=== PATIENT | female | born 1965 | race American Indian/Alaskan Native ===

== ENCOUNTER 2018-05-21 13:52 | Emergency (ER) | payer OTHER ==
--- NOTE | 2018-05-21 14:00 | Emergency Department Report ---
Blank Doc - Documentation Documentation: 52 y o female presents to ED cc of left lower leg pain anfd flank pain x 1 week, states leg is worse with walking ua ordered
[2018-05-21] MEDS ORDERED: IBUPROFEN PO ONE (15:03)
--- NOTE | 2018-05-21 15:06 | Emergency Department Report ---
ED Back Pain/Injury HPI - General Chief Complaint: Extremity Injury, Lower Stated Complaint: BACK/L LOWER LEG PAIN Time Seen by Provider: 05/21/18 13:57 Source: patient Limitations: No Limitations - History of Present Illness Initial Comments: This is a 52-year-old female who presents with low back pain that is radiating down left lower extremity for one week. No PMH. States she was told of possible arthritis to left hip. States left hip is fine. Pain is shooting from left thigh to left ankle. Patient reports similar symptoms in the past but is increased over the past week while starting a new job. She also reports some swelling to left lower extremity edema and a after standing while at work. MD Complaint: back pain Onset/Timin -: week(s) Similar Symptoms Previously: No Place: home Radiation: left leg Severity: severe Severity scale (0 -10): 9 Quality: burning, aching Consistency: intermittent Improves With: immobilization Worsens With: movement, walking Context: unknown Associated Symptoms: denies: numbness, difficulty urinating, incontinence, fever/chills Treatments Prior to Arrival: NSAIDS - Related Data Previous Rx's Medication Instructions Recorded Last Taken Type Ibuprofen [Motrin 800 MG tab] 800 mg PO Q8HR PRN #20 tablet 05/21/18 Unknown Rx Sulfamethoxazole/Trimethoprim 1 each PO BID #6 tablet 05/21/18 Unknown Rx [Bactrim DS TAB] methOCARBAMOL [Robaxin TAB] 500 mg PO BID PRN #15 tab 05/21/18 Unknown Rx traMADol [Ultram 50 MG tab] 50 mg PO Q6HR PRN #12 tablet 05/21/18 Unknown Rx Allergies Allergy/AdvReac Type Severity Reaction Status Date / Time No Known Allergies Allergy Unverified 05/21/18 13:53 ED Review of Systems ROS: Stated complaint: BACK/L LOWER LEG PAIN Other details as noted in HPI Constitutional: denies: chills, fever Respiratory: denies: cough, shortness of breath, wheezing Cardiovascular: denies: chest pain, palpitations Gastrointestinal: denies: abdominal pain, nausea, diarrhea Musculoskeletal: back pain. denies: joint swelling, arthralgia Skin: denies: rash, lesions Neurological: denies: headache, weakness, paresthesias Psychiatric: denies: anxiety, depression ED Back Pain Physical Exam - Exam General: Vital signs noted. No distress. Alert and acting appropriately. Back/Abdomen: Yes Sacroiliac Tenderness (tenderness above left iliac creast, no swelling or erythema), Yes Straight Leg Raise Pain (left leg), No Abdominal Tenderness, No Perithoracic Tenderness, No Perilumbar Tenderness, No Flank Tenderness Neuro: Yes Normal Sensation, Yes Normal DTR's, Yes Normal Gait, No Motor Weakness ED Course Vital Signs 05/21/18 13:57 Temperature 98.2 F Pulse Rate 95 H Respiratory 16 Rate Blood Pressure 141/85 O2 Sat by Pulse 100 Oximetry Ed Back Pain Tests - Tests Tests: Abnormal UA, Abnormal X Rays ED Medical Decision Making - Lab Data Lab Results 05/21/18 Range/Units Unknown Urine Color Yellow (Yellow) Urine Turbidity Slightly-cloudy (Clear) Urine pH 7.0 (5.0-7.0) Ur Specific [place] 1.017 (1.003-1.030) Urine Protein <15 mg/dl (Negative) mg/dL Urine Glucose (UA) Neg (Negative) mg/dL Urine Ketones Neg (Negative) mg/dL Urine Blood Neg (Negative) Urine Nitrite Neg (Negative) Urine Bilirubin Neg (Negative) Urine Urobilinogen 2.0 (<2.0) mg/dL Ur Leukocyte Esterase Sm (Negative) Urine WBC (Auto) 24.0 H (0.0-6.0) /HPF Urine RBC (Auto) 2.0 (0.0-6.0) /HPF U Epithel Cells (Auto) 16.0 H (0-13.0) /HPF Urine Mucus Few /HPF - Radiology Data Radiology results: report reviewed PROCEDURE: XR SPINE LUMBOSACRAL 2-3V TECHNIQUE: 3 views lumbar spine HISTORY: low back pain worse on left COMPARISONS: None FINDINGS: Lumbar vertebrae demonstrate normal height. Severe facet arthropathy L3-4, L4-5 and L5-S1. Grade 1 anterolisthesis L4 on L5 thought secondary to facet arthropathy. Mild narrowing of the disc spaces L4-5 and L5-S1 SI joints unremarkable IMPRESSION: . No acute abnormality Advanced spondylosis as above.. - Medical Decision Making Patient was examined by me. Vitals are normal and patient is in no acute distress. Obtained a urinalysis and x-ray of L-spine. X-rays dictated by radiologist and report reviewed by myself. No acute abnormality. Advanced spondylosis as above. Urinalysis suspect both of acute cystitis, leukocytosis, elevated WBC, small blood. Patient informed of results. Muscle strain and sciatica. Start Bactrim DS, ibuprofen, robaxin, and tramadol for pain. Plan discussed with patient to discharge home and treat outpatient. He agrees with ER plan. Patient discharged home in stable condition. Follow up with PCP in 2-3 days. Critical care attestation.: If time is entered above; I have spent that time in minutes in the direct care of this critically ill patient, excluding procedure time. ED Disposition Clinical Impression: Sciatica of left side Low back pain Qualifiers: Chronicity: acute Back pain laterality: left Sciatica presence: with sciatica Sciatica laterality: sciatica of left side Qualified Code(s): M54.42 - Lumbago with sciatica, left side Acute cystitis Qualifiers: Hematuria presence: with hematuria Qualified Code(s): N30.01 - Acute cystitis with hematuria Spondylosis of lumbosacral region Qualifiers: Spinal osteoarthritis complication: with radiculopathy Qualified Code(s): M47.27 - Other spondylosis with radiculopathy, lumbosacral region Disposition: - TO HOME OR SELFCARE Is pt being admited?: No Does the pt Need Aspirin: No Condition: Stable Instructions: Sciatica (ED), Urinary Tract Infection in Women (ED), Arthralgia (ED), Lumbar Radiculopathy (ED) Additional Instructions: Increase fluid intake to 1L to 2L daily. Complete full course of antibiotics as prescribed. Avoid drinking alcohol while taking antibiotics and for 24 hours after completion. Follow up with primary care provider in 2-3 days. Rest, use ice or heat on affected area for 20 minutes and off for 2 hours. Take pain medication every 6-8 hours as needed for pain. Don't drive or operate machinery while taking muscle relaxers because they may cause drowsiness. Follow-up with orthopedic surgeon from referrals below. Prescriptions: Sulfamethoxazole/Trimethoprim [Bactrim DS TAB] 1 each PO BID #6 tablet Ibuprofen [Motrin 800 MG tab] 800 mg PO Q8HR PRN #20 tablet PRN Reason: Pain, Moderate (4-6) methOCARBAMOL [Robaxin TAB] 500 mg PO BID PRN #15 tab PRN Reason: Muscle Spasm traMADol [Ultram 50 MG tab] 50 mg PO Q6HR PRN #12 tablet PRN Reason: Pain , Severe (7-10) Referrals: NIYA GAYTAN MD [Primary Care Provider] - 3-5 Days [facility] [Outside] - 3-5 Days [facility] [Outside] - 3-5 Days [facility] [Outside] - 3-5 Days COURTNEY LACEY MD [Staff Physician] - 3-5 Days [facility] [Provider Group] - 3-5 Days Forms: Work/School Release Form(ED) Time of Disposition: 17:14
[2018-05-21 15:51] LABS: Bilirubin,Urine NEG (Negative); Blood,Urine NEG (Negative); Color,Urine Yellow (Yellow); Mucus,Urine FEW /HPF; Protein,Urine <15 mg/dL mg/dL (Negative)
--- NOTE | 2018-05-21 16:08 | XRay Report ---
PROCEDURE: XR SPINE LUMBOSACRAL 2-3V TECHNIQUE: 3 views lumbar spine HISTORY: low back pain worse on left COMPARISONS: None FINDINGS: Lumbar vertebrae demonstrate normal height. Severe facet arthropathy L3-4, L4-5 and L5-S1. Grade 1 anterolisthesis L4 on L5 thought secondary to facet arthropathy. Mild narrowing of the disc spaces L4-5 and L5-S1 SI joints unremarkable IMPRESSION: . No acute abnormality Advanced spondylosis as above.. This document is electronically signed by Rancho Gil MD., May 21 2018 04:06:32 PM ET
[2018-05-21 17:33] VITALS: BP 152/94
== END 2018-05-21 17:33 | disposition home or self-care (01) ==
LOC: ED 13:52
DX: N30.00 Acute cystitis without hematuria (principal); M47.817 Spondylosis without myelopathy or radiculopathy, lumbosacral region; M54.32 Sciatica, left side
CPT/HCPCS: 72100; 81001